=== PATIENT | male | born 1990 | race Two or more races ===

== ENCOUNTER 2024-12-09 10:35 | Emergency (ER) | payer BC, SELFPAY ==
[2024-12-09 11:33] VITALS: BP 139/85; PULSE 82; RESP 18; TEMP 37.2; O2SAT 99; BMI 31.4
--- NOTE | 2024-12-09 11:46 | XR_ITS ---
EXAMINATION: Ankle, left 3 views . Technique: Ankle AP, oblique, lateral 3 views Date and time of exam: December 09, 2024 1158 hours INDICATIONS: Onset left ankle pain this week FINDINGS: No fracture or dislocation Mild narrowing tibiotalar joint Minute 1 mm plantar bony calcaneal spur IMPRESSION: Mild narrowing tibiotalar joint Minute plantar bony calcaneal spur
--- NOTE | 2024-12-09 11:46 | PD.EDLOWEX ---
Lower Extremity Injury RME/HPI General Chief Complaint: Extremity Injury, Lower Stated Complaint: left ankle pain/ injury since last night Time Seen by Provider: 12/09/24 10:39 Arrival date/time: 12/09/24 10:35 34-year-old male presents to the emergency department complaints of left ankle pain patient reports he tripped over a pallet last night patient reports no other injuries Limitations: no limitations Related Data Previous Rx's ?Medication ?Instructions ?Recorded hydrocodone 5 mg-acetaminophen 325 1 tab PO BID PRN pain #8 tabs 08/20/21 mg tablet ibuprofen 800 mg tablet 800 mg PO TID PRN pain #30 tabs 08/20/21 ibuprofen 800 mg tablet 800 mg PO TID PRN pain #30 tabs 12/09/24 Allergies Allergy/AdvReac Type Severity Reaction Status Date / Time codeine Allergy Mild Abdominal Verified 12/09/24 10:36 Pain Review of Systems Review of Systems Systems Reviewed: All systems reviewed, normal except as documented Constitutional Constitutional: Reports system reviewed and no additional complaints, except as documented, Denies fever(s) and Denies headache(s) Eyes Eyes: Reports system reviewed and no additional complaints, except as documented and Denies blurry vision ENT Ears, Nose, Mouth, and Throat: Reports system reviewed and no additional complaints, except as documented, Denies headache(s), Denies nasal congestion and Denies nasal discharge Cardiovascular Cardiovascular: Reports system reviewed and no additional complaints, except as documented, Denies chest pain and Denies dyspnea Respiratory Respiratory: Reports system reviewed and no additional complaints, except as documented, Denies chest congestion, Denies cough and Denies dyspnea Gastrointestinal Gastrointestinal: Reports system reviewed and no additional complaints, except as documented and Denies abdominal pain Musculoskeletal Musculoskeletal: Reports system reviewed and no additional complaints, except as documented, Reports abnormal gait, Reports arthralgias, Denies deformity, Reports joint swelling, Denies numbness, Reports stiffness and Denies tingling Integumentary/Breasts Skin/Breast: Reports system reviewed and no additional complaints, except as documented and Denies rash Neurologic Neurologic: Reports system reviewed and no additional complaints, except as documented, Reports as per HPI, Reports abnormal gait, Denies headache(s), Denies numbness and Denies tingling Past Medical History Past Medical History NEUROLOGIC: Negative Neurological Disorders CARDIAC: Negative Cardiac Disorders ED Exam General Limitations: Present no limitations General appearance: Present alert and in no apparent distress Head Head exam: Present atraumatic, normocephalic and normal inspection Eye Eye exam: Present normal appearance, PERRL and EOMI ENT ENT exam: Present normal exam, normal oropharynx and mucous membranes moist Neck Neck exam: Present normal inspection, full ROM and trachea midline Chest Chest inspection: Present normal inspection and symmetric chest wall rise Respiratory Respiratory exam: Present normal lung sounds bilaterally Cardiovascular Cardiovascular exam: Present regular rate, normal rhythm and normal heart sounds Abdominal Exam Abdominal exam: Present soft and normal bowel sounds Extremities Exam Extremities exam: Present full ROM, tenderness, normal capillary refill and joint swelling Back Exam Back exam: Present normal inspection and full ROM Neurological Exam Neurological exam: Present alert, oriented X3, CN II-XII intact, normal gait and reflexes normal; Absent motor sensory deficit Psychiatric Psychiatric exam: Present normal affect and normal mood Skin Skin exam: Present warm, dry, intact and normal color Course Quality Measures none Orders Category Date Time Status willard wrap [Splint / Immobilizer] STAT Care 12/09/24 12:20 Completed XR ankle comp LT min 3V Stat Exams 12/09/24 11:46 Completed Vital Signs Vital signs: Vital Signs Temperature 98.9 F 12/09/24 11:33 Pulse Rate 82 12/09/24 11:33 Respiratory Rate 18 12/09/24 11:33 Blood Pressure 139/85 H 12/09/24 11:33 Pulse Oximetry (%) 99 12/09/24 11:33 Oxygen Delivery Method Room Air 12/09/24 11:33 O2 saturation 99% on room air within the limits Extremity Injury, Lower MDM Narrative MDM Narrative:: 34-year-old male presents to the emergency department complaints of left ankle pain patient ports he tripped over a pallet last night patient reports no other injuries On exam patient has tenderness of the left ankle patient reports pain worse with movement On exam patient has mild swelling left ankle left lateral malleolus Placed in Willard wrap patient has his own crutches Patient discharged home in no distress to follow-up with primary care doctor in the next 24 to 48 hours and for any worsening symptoms to return to the ER immediately Patient data External records reviewed:: [facility] previous records Clinical information provided by:: patient Social determinants that could affect healthcare access:: none Patient has the following chronic illnesses:: None How is presenting disease/condition affected by chronic disease/condition?: no chronic disease Evaluation data The following diagnostics were reviewed and interpreted by me:: radiology exam(s) Lab and/or radiology exams considered but not ordered:: Radiology obtain Interpretation Summary: Reviewed by me Medications / Prescriptions Medications or Prescriptions considered but not ordered:: Given Medication administrations:: Given Consultations Consultation(s) initiated? (list below): No Diagnosis Extremity Injury, Lower Differential Diagnosis: ankle sprain and strain and ankle fracture Most likely diagnosis given after review of the tests above:: Sprain Admission Indicated Admission indicated?: not indicated Admission Request Was there a request for admission?: No Disposition Plan Disposition Plan: Discharge Discharge Attestation Discharge Attestation: The patient and all family members were given an opportunity to ask questions and understood the discharge instructions. Discharge instructions specifically effects, indications for sooner follow up or return to the emergency department, and the expected course of current diagnosis. Patient condition: Stable Discharge Plan Plan Patient Disposition: HOME (Self Care) Disposition Comment: Stable Prescriptions/Referrals Prescriptions/Med Rec: New ibuprofen 800 mg tablet 800 mg PO TID PRN (Reason: pain) Qty: 30 0RF No Action ibuprofen 800 mg tablet 800 mg PO TID PRN (Reason: pain) Qty: 30 0RF hydrocodone-acetaminophen 5-325 mg tablet 1 tab PO BID MDD 10 PRN (Reason: pain) Qty: 8 0RF Referrals: No Primary/Family,Physician [Primary Care Provider] - 12/10/24 Problem List Clinical Impression: Left ankle sprain Patient/Caregiver Discharge Instructions Education Materials: Treating Ankle Sprains Additional Instructions: Please follow up with your primary care doctor in the next 24-48hrs for any worsening symptoms return here immediately Print Language: Polish Stand Alone Forms: Yesika Award Info., Work/School Release, Patient Portal Info Letter PA/COACH CLEANER Supervising Physician PA/COACH CLEANER Supervising Physician: Dr. Victor
== END 2024-12-09 14:05 | disposition home or self-care (01) ==
PROVIDERS: Emergency Provider Emergency Medicine
DX: S93.402A Sprain of unspecified ligament of left ankle, initial encounter (principal); W22.8XXA Striking against or struck by other objects, initial encounter
CPT/HCPCS: 73610; 99283